=== PATIENT | male | born 1965 | race Caucasian/White ===

== ENCOUNTER 2016-11-12 04:55 | Emergency (ER) | payer OTHER ==
[~2016-11-12] VITALS: Ht 172.7 cm; Wt 144.6 kg
[~2016-11-12 04:55] MED LIST: ADDERALL XR20 M1 PO; ADDERALL XR20 MG PO; ADDERALL20 MG PO; AUGMENTIN875 MG PO; B-COMPLEX-VITA1 EACH PO; BENADRYL ALLERG25 MG PO; CENTRUM SILV1 TABLET PO; CLONIDINE HCL0.1 MG PO; Children's Advil Sus PO; DAILY VALUE1 EACH PO; DIFLUCAN150 MG PO; DIOVAN160 MG PO; DIOVAN320 MG PO; HYDROCHLOROTH12.5 M3 PO; HYDROCHLOROTHIA25 MG PO; IMODIUM MS REL1 EACH PO; LEVEMIR FL100 UNIT/1 SC; LOW DOSE ASPIRI81 M1 PO; LUNESTA3 MG PO; MAGNESIUM; NEURONTIN100 MG PO; OCEAN NASAL 0.645 ML BOTH NARES; OMEGA 3-6-91200 MG PO; PANTOPRAZOLE SO40 MG PO; PRILOSEC20 MG PO; SUPER B WITH V1 EACH PO; Theragran-M,Centrum, PO; VALSARTAN320 MG PO; VITAMIN D; VITAMIN D32000 UNI1 PO; WELLBUTRIN75 MG PO; Wellbutrin XL PO; XANAX1 MG PO; Xanax PO; ZINC CHELATED50 M1 PO
[2016-11-12 05:43] LABS: HEMATOCRIT 41.1 % (38.0-50.0); MCH 27.6 PG (29.0-34.0); MCHC 33.8 G/DL (30.0-36.0); MCV 81.5 FL (86-99); MEAN PLAT.VOLUME 9.2 uM^3 (9.0-12.4); PLATELET COUNT 192 K/uL (156-360); RBC DIS.WIDTH-CV 14.7 % (11.8-14.6); RBC DIS.WIDTH-SD 43.6 % (39-53); RED BLOOD COUNT 5.04 M/uL (4.00-5.50); WHITE BLOOD COUNT 8.7 K/uL (4.1-10.2)
[2016-11-12 05:55] LABS: CHLORIDE 103 mEq/L (99-109); POTASSIUM 3.8 mEq/L (3.7-5.4); SODIUM 135 mEq/L (136-147)
[2016-11-12 05:57] LABS: GLUCOSE 141 mg/dL (70-99)
[2016-11-12 05:58] LABS: ANION GAP 9 MEQ/L (2-14)
[2016-11-12 06:01] LABS: GFR ESTIMATE (CALCULATED) > 59 mL/min/; UREA NITROGEN (BUN) 20 mg/dL (9-23)
[2016-11-12 06:05] LABS: TROP-I INTERPRETATION NEGATIVE; TROPONIN-I < 0.01 ng/mL (0.0-0.30)
[2016-11-12 06:24] VITALS: BP 104/80
== END 2016-11-12 06:25 | disposition home or self-care (01) ==
LOC: EME 04:55
PROVIDERS: Emergency Medicine
DX: R07.9 Chest pain, unspecified (principal); I11.0 Hypertensive heart disease with heart failure; I50.9 Heart failure, unspecified; F41.9 Anxiety disorder, unspecified; F90.9 Attention-deficit hyperactivity disorder, unspecified type
CPT/HCPCS: 71020; 80048; 84484; 85027; 93005; 99281; 99284